=== PATIENT | female | born 1975 | race Caucasian/White ===

== ENCOUNTER 2021-06-21 08:58 | Outpatient (CLI) | payer BC ==
[2021-06-21 21:44] LABS: SARS-CoV-2 PCR by NAA Not Detected (NotDetected)
== END 2021-06-21 08:59 | disposition home or self-care (01) ==
LOC: LABBT 08:58
PROVIDERS: ATTEND Family Medicine
DX: Z20.822 Contact with and (suspected) exposure to COVID-19 (principal)
CPT/HCPCS: U0003; U0005

== ENCOUNTER 2022-10-11 14:07 | Outpatient (CLI) | payer BC | END 2022-10-11 14:08 | disposition home or self-care (01) | LOC: ULT 14:07 | PROVIDERS: ATTEND Physician Assistant Medical | DX: R10.11 Right upper quadrant pain (principal); K76.0 Fatty (change of) liver, not elsewhere classified; Z90.49 Acquired absence of other specified parts of digestive tract | CPT/HCPCS: 76705 ==

== ENCOUNTER 2022-11-15 11:10 | Outpatient (CLI) | payer BC | END 2022-11-15 11:11 | disposition home or self-care (01) | LOC: BICRAD 11:10 | DX: L52 Erythema nodosum (principal) | CPT/HCPCS: 71046 ==